=== PATIENT | male | born 1940 | race African-American/Black ===

== ENCOUNTER 2017-11-02 12:58 | Inpatient (IN) | payer MEDICARE, OTHER ==
[2017-11-02] MEDS ORDERED: Dexamethasone 40 MG, Ondansetron 2MG/ML MDV 10 MG in Sodium Chloride 0.9% 50 ML IVPB SCH (14:15)
[2017-11-02] MEDS ORDERED: SODIUM CHLORIDE 0.9% IVPB SCH (14:30)
[2017-11-02] MEDS ORDERED: ADMIXTURE FEE SC SCH (14:30)
[2017-11-02] MEDS ORDERED: BORTEZOMIB SC SCH (14:30)
[2017-11-02] MEDS ORDERED: CYCLOPHOSPHAMIDE IVPB SCH (14:30)
[2017-11-02] MEDS ORDERED: valACYclovir 500 MG TAB PO SCH (14:30)
[2017-11-02 14:34] LABS: ALT (SGPT) 7 U/L (8-55); AST (SGOT) 16 U/L (5-34); Albumin 3.6 g/dL (3.4-4.8); Alkaline Phosphatase 39 U/L (40-150); Anion Gap 12 mmol/L (10-20); BUN (Urea Nitrogen) 17 mg/dL (8.4-25.7); Bilirubin, Total 0.3 mg/dL (0.2-1.2); Calc. Creatinine Clearance 24 mL/min (70-130); Carbon Dioxide 34 mmol/L (23-31); Chloride 98 mmol/L (98-107); Estimated GFR-MDRD 51; Globulin 8.3 g/dL (2.4-3.5); Glucose 100 mg/dL (83-110); LDH 156 U/L (125-220); Potassium 4.2 mmol/L (3.5-5.1); Protein, Total 11.9 g/dL (5.8-8.1); Sodium 140 mmol/L (136-145); Uric Acid 9.9 mg/dL (3.5-7.2)
[2017-11-02 14:40] LABS: Calcium 13.9 mg/dL (7.8-10.44)
[2017-11-02 14:43] LABS: Eosinophils 6 % (0-10); Hemoglobin 8.9 g/dL (14.0-18.0); Lymphocytes 41 % (21-51); MDiff Complete? YES; Mean Corpuscular HGB CONC 32.2 g/dL (32.0-36.0); Mean Corpuscular Hemoglobin 34.4 pg (27.0-31.0); Mean Platelet Volume 7.7 fL (7.4-10.4); Monocytes 6 % (0-10); Neutrophil 46 % (42-75); PLT Morphology Comment Appears Adequate; Platelet Count 138 thou/uL (130-400); RBC Distribution Width 13.6 % (11.5-14.5); Reactive Lymphocytes 1 % (0-10); White Blood Cell (WBC) Count 8.2 thou/uL (4.8-10.8)
[2017-11-02 17:27] VITALS: BMI 15.0
[2017-11-02] MEDS: Sodium Chloride 0.9% 1,000 ML IV SCH (18:06)
--- NOTE | 2017-11-02 19:14 | CON ---
DATE OF CONSULTATION: 11/02/2017 REASON FOR CONSULTATION: Multiple myeloma. HISTORY OF PRESENT ILLNESS: Mr. Nagel is a pleasant 77-year-old -[place]ese male who was diagn osed with IgG lambda multiple myeloma in 09/2017. The patient had an M-spike of 3.8 at diagnosis. H is first chemotherapy of CyBorD was today. Chemistry performed today showed calcium of 13.9. The pa roman had no neurological changes or new aches or pains. He is being admitted for treatment of his h ypercalcemia and continuation of his chemotherapy. PAST MEDICAL HISTORY: 1. Hypertension. 2. COPD. 3. History of lung cancer in 2006, status post right lower lobe lobectomy. 4. Bullous emphysema. 5. Chronic gout. PAST SURGICAL HISTORY: 1. Ileocecectomy for distal small bowel volvulus in 1993. 2. Right lower lobe lobectomy. 3. Prostatectomy. 4. Right orchiectomy and right inguinal hernia repair. 5. EGD. 6. Right hip replacement. ALLERGIES: No known drug allergies. HOME MEDICATIONS: 1. Albuterol inhaler p.r.n. 2. Amlodipine 5 mg daily. 3. Flonase daily. 4. ProAir p.r.n. 5. Symbicort b.i.d. 6. Valtrex 500 mg daily. 7. Zofran p.r.n. FAMILY HISTORY: No family history of blood disorder or malignancy. SOCIAL HISTORY: , has 5 children. He lives alone. He is a former smoker with a [id number] history, quit over 15 years ago. No alcohol or illicit drug use. REVIEW OF SYSTEMS: Constitutional: No fever, chills, night sweats, recent weight loss or gain. Eye s: No blurred or double vision. ENT: No pain, hoarseness, sore throat, or dysphagia. Cardiovascul ar: No chest pain, palpitations or syncope. Respiratory: No shortness of breath, dyspnea on exerti on. He does have a cough. Gastrointestinal: No nausea, vomiting, diarrhea, constipation or abdomin al pain. Genitourinary: No dysuria or hematuria. Musculoskeletal: No joint or back pain. Skin: No rash or pruritus. Hematologic: No bleeding, bruising or clotting. Neurologic: No weakness, hea dache, numbness, tingling or seizure activity. Psychiatric: No anxiety or depression. PHYSICAL EXAMINATION: VITAL SIGNS: Temperature is 97.4, pulse is 87, respiratory rate 16, BP is 135/66. GENERAL: Chronically ill-appearing male in no acute distress. HEENT: Normocephalic, atraumatic. Pupils are equal and reactive to light. NECK: Supple. CVS: Regular rate and rhythm. LUNGS: Clear. ABDOMEN: Soft, nontender, bowel sounds are positive. EXTREMITIES: No clubbing, cyanosis or edema. SKIN: No rash. HEMATOLOGIC: No petechia or purpura. NEUROLOGICAL: Nonfocal. PSYCHIATRIC: The patient is alert and oriented and answering appropriately. PERTINENT LABORATORY AND X-RAYS: Current WBCs are 8.2, hemoglobin 8.9, hematocrit 27.8, platelet cou nt is 138,000. He has got 46% neutrophils, 41% lymphocytes. Sodium is 140, potassium 4.2, chloride 98, CO2 of 34, BUN is 17, creatinine 1.59, uric acid is 9.9, calcium 13.9, bilirubin 0.3, AST 16, ALT 7, alkaline phosphatase is 39. LDH is 156, serum total protein is 11.9, albumin 3.6, globulin 8.4. His IgA is 5597. IMPRESSION: 1. Newly-diagnosed multiple myeloma. 2. Hypercalcemia. DISCUSSION: The patient will be admitted for treatment of his hypercalcemia. He will receive Zometa 3.5 mg IV. We will begin IV fluids at 75 mg per hour. He was in the outpatient treatment room rece iving his first cycle of Cytoxan, which we will continue in the inpatient setting. He is scheduled f or a skeletal survey. This will be done in the inpatient setting as well in the next day or two, we will follow his labs closely. Thank you for the consult.
[2017-11-03] MEDS: Sodium Chloride 0.9% 1,000 ML IV SCH ×2 (07:42→22:30)
[2017-11-03] MEDS ORDERED: traMADol HCl 50 MG TAB PO PRN (08:05)
[2017-11-03] MEDS ORDERED: Fluticasone Propionate Nasal Spray 16 gm Bottle NASAL PRN ×2 (08:05→08:15)
[2017-11-03] MEDS ORDERED: PROVENTIL INHALER 6.7 G (200 INHALATIONS) INH PRN (08:06)
[2017-11-03] MEDS ORDERED: BUDESONIDE FORMOTEROL INH SCH (09:00)
[2017-11-03] MEDS: Amlodipine 5 MG TAB PO SCH (09:29)
--- NOTE | 2017-11-03 09:45 | HP ---
DATE OF CONSULTATION: 11/02/2017. CHIEF COMPLAINT: Elevated calcium level. HISTORY OF PRESENT ILLNESS: This is a 77-year-old gentleman with a history of COPD, history of non-s mall cell carcinoma of his right lung, status post right lobectomy, history of hypertension with a re cent diagnosis of multiple myeloma in 09/2017. He is being admitted for elevated calcium level. He was being seen by Oncology to initiate his chemotherapy when he was found to have a calcium level of 13.9 and he is being admitted for IV fluid, Zometa infusion and close monitoring. The patient denies any pain, denies bone pain, denies chest pain or shortness of breath, denies nausea and vomiting and so far, he is tolerating the treatments. PAST MEDICAL HISTORY: Non-small cell carcinoma of his right lung from 2008, status post right lobect jessica, hypertension, COPD with bullous emphysema, chronic gout, seasonal allergies, increased weakness. MEDICATIONS: Include Flonase daily, ProAir p.r.n., albuterol nebs p.r.n., Symbicort 160/4.5 two puff s b.i.d., tramadol p.r.n. pain, amlodipine 5 mg daily. PAST SURGICAL HISTORY: Ileocecectomy of distal small bowel in 1993, right lower lobectomy in 2008, p rostatectomy, right orchiectomy and right inguinal hernia repair, EGD in 2007. ALLERGIES: None known. SOCIAL HISTORY: He is . Lives at home. Has 3 children, 2 boys and 1 girl. Remote smoker. No alcohol use. FAMILY HISTORY: Father of unknown. Recent mother . IMMUNIZATIONS: Up to date. Last tetanus in 2016. Prevnar in 2014. Pneumovax in 2017. Flu shot in 2017. REVIEW OF SYSTEMS: As per the history of present illness. General: Denies any recent fevers, chill s or recent illness. HEENT: Some hardness of hearing. Positive for allergy with nasal congestion. Cardiac: Denies chest pain, shortness of breath or palpitations. Pulmonary: Positive for chronic cough, denies shortness of breath at this time. No hemoptysis. Gastrointestinal: No nausea, vomiti ng, abdominal pain, melena or hematochezia. Genitourinary: Positive history of benign prostatic hyp ertrophy. No symptoms at this time. Musculoskeletal: Positive weakness, some falls at home. Upper and lower extremity weakness. Neurologic: Positive weakness. No seizures or syncope. PHYSICAL EXAMINATION: VITAL SIGNS: Temperature 97.8, pulse is 66, respirations 20, blood pressure 120/56, pulse ox is 96% on room air. GENERAL: He is awake and alert, in no acute distress. Speech is clear. NECK: Supple. HEART: Regular rate and rhythm, but distant. LUNGS: Clear. No wheeze, rales or rhonchi. ABDOMEN: Flat, soft, nontender, nondistended. No hepatosplenomegaly. EXTREMITIES: No clubbing, cyanosis or edema, 2+ peripheral pulses bilaterally. LABORATORY DATA AND X-RAY FINDINGS: Sodium 140, potassium 4.2, chloride 98, CO2 of 34, BUN and creat inine are 17 and 1.59 with a GFR of 51. Serum glucose of 100. Uric acid elevated at 9.9. Calcium e levated at 13.9. AST and ALT are normal. Alkaline phosphatase was low, albumin of 3.6. White blood cell count 8200, hemoglobin and hematocrit are 8.9 and 27.8 with macrocytic indices, platelets of 13 8. IgA was elevated at 5597. ASSESSMENT AND PLAN: This is a 77-year-old gentleman with a history of non-small cell carcinoma, sta tus post lobectomy and recent diagnosis of multiple myeloma, now found to be hypercalcemic. Apprecia te Oncology managing with IV fluids and Zometa treatment. We will continue to monitor closely. Furt her labs per Oncology. 1. Hypertension. We will continue amlodipine and follow closely. 2. Chronic obstructive pulmonary disease. We will continue his inhalers including Symbicort and bet a-agonist p.r.n. 3. Anemia, macrocytic. I will continue to monitor and manage per Oncology recommendations. 4. Stage III chronic kidney disease. We will monitor closely and adjust medications appropriately.
[2017-11-03 11:10] LABS: ALT (SGPT) 9 U/L (8-55); AST (SGOT) 22 U/L (5-34); Albumin 3.1 g/dL (3.4-4.8); Alkaline Phosphatase 35 U/L (40-150); Anion Gap 16 mmol/L (10-20); BUN (Urea Nitrogen) 19 mg/dL (8.4-25.7); Bilirubin, Total 0.5 mg/dL (0.2-1.2); Calc. Creatinine Clearance 26 mL/min (70-130); Calcium 11.2 mg/dL (7.8-10.44); Carbon Dioxide 24 mmol/L (23-31); Chloride 102 mmol/L (98-107); Estimated GFR-MDRD 58; Globulin 7.3 g/dL (2.4-3.5); Glucose 139 mg/dL (83-110); Potassium 4.4 mmol/L (3.5-5.1); Protein, Total 10.4 g/dL (5.8-8.1); Sodium 138 mmol/L (136-145)
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
[2017-11-03] MEDS: Mometasone/Formoterol 120 PUFF INHALER INH SCH (17:55)
[2017-11-04 06:18] LABS: Beta-2-Microglobulin 4.2 mg/L (0.6-2.4)
[2017-11-04] MEDS: Mometasone/Formoterol 120 PUFF INHALER INH SCH (07:26)
[2017-11-04 07:54] VITALS: BP 118/56; TEMP 98.2
[2017-11-04] MEDS: Amlodipine 5 MG TAB PO SCH (07:54)
[2017-11-04 08:12] LABS: ALT (SGPT) Less than 7 U/L (8-55); AST (SGOT) 14 U/L (5-34); Albumin 2.8 g/dL (3.4-4.8); Alkaline Phosphatase 32 U/L (40-150); Anion Gap 13 mmol/L (10-20); BUN (Urea Nitrogen) 17 mg/dL (8.4-25.7); Bilirubin, Total 0.6 mg/dL (0.2-1.2); Calc. Creatinine Clearance 31 mL/min (70-130); Calcium 9.4 mg/dL (7.8-10.44); Carbon Dioxide 24 mmol/L (23-31); Chloride 106 mmol/L (98-107); Estimated GFR-MDRD 70; Globulin 6.1 g/dL (2.4-3.5); Glucose 91 mg/dL (83-110); Potassium 3.4 mmol/L (3.5-5.1); Protein, Total 8.9 g/dL (5.8-8.1); Sodium 140 mmol/L (136-145)
[2017-11-04 08:21] LABS: A/G Ratio 0.5 (0.7-1.7); Albumin 3.9 g/dL (2.9-4.4); Alpha 1 0.3 g/dL (0.0-0.4); Alpha 2 0.7 g/dL (0.4-1.0); Beta 1.3 g/dL (0.7-1.3); Globulin, Total 7.3 g/dL (2.2-3.9); M-Spike 4.5 g/dL (Not Observed)
--- NOTE | 2017-11-04 08:39 | DIS ---
DATE OF ADMISSION: 11/02/2017 DATE OF DISCHARGE: 11/04/2017 ADMISSION DIAGNOSIS: 1. Hypercalcemia. 2. Multiple myeloma initiating chemotherapy. 3. Hypertension. 4. Chronic obstructive pulmonary disease. 5. Chronic anemia. 6. Chronic kidney disease. DISCHARGE DIAGNOSES: 1. Hypercalcemia, resolved. 2. History of non-small cell carcinoma of his right lung, status post right lobectomy. CONSULTATIONS: Dr. Sebastian for Oncology. PROCEDURES: IV fluids, IV Zometa infusion chemotherapy. HOSPITAL COURSE: This is a 77-year-old gentleman with medical issues as described above who was rece ntly diagnosed with multiple myeloma. He came to Oncology for initiation of his chemotherapy and was found to have a calcium level of 13.9. He was admitted for IV fluids and Zometa as per Dr. Sebastian and his calcium level began to decline. The patient remained symptomatic throughout his hospitaliza tion. His mentation was clear. He denied any pain, denied chest pain, shortness of breath, nausea o r vomiting and he was stable for discharge pending his final labs. DISCHARGE PHYSICAL EXAMINATION: VITAL SIGNS: Temperature 98.2, pulse is 79, respirations 20, blood pressure 118/56, pulse ox is 96% on room air. GENERAL: He is awake and alert. Speech is clear. NECK: Supple. HEART: Regular rate and rhythm. LUNGS: Distant but clear. ABDOMEN: Soft. EXTREMITIES: With no edema. DISCHARGE LABS: 11/03/2017 - Sodium 138, potassium 4.4, chloride 102, CO2 24, BUN and creatinine 119 and 1.42, calcium was down to 11.2, albumin of 3.1. This morning labs are pending. A bone osseous survey was normal. DISCHARGE MEDICATIONS: Albuterol p.r.n., amlodipine 5 mg daily, Flonase daily, Symbicort 2 puffs b.i .d., tramadol p.r.n. pain. FOLLOWUP INSTRUCTIONS: The patient to follow up in my office in [address] Sebastian as per his chemo regimen.
--- NOTE | 2017-11-04 10:53 | PQF ---
CLINICAL DOCUMENTATION IMPROVEMENT CLARIFICATION FORM: ICD-10 Updated PLEASE DO AN ADDENDUM TO THE PROGRESS NOTE WITH ANY DOCUMENTATION UPDATES OR ADDITIONS AND CARRY THROUGH TO DC SUMMARY. THANK YOU. DATE: 11/04/17 ATTN: Dr. Sparks Please exercise your independent, professional judgment in responding to the clarification form. Clinical indicators are provided on the bottom of this form for your review Please check appropriate box(s): BMI <19 with associated diagnosis of: (check one) [ ] Underweight without malnutrition [ x] Cachexia [ ] Other diagnosis [ ] Unable to determine In addition, please specify: Present on Admission (POA): [x ] Yes [ ] No [ ] Unable to Determine For continuity of documentation, please document condition throughout progress notes and discharge summary. Thank You. BMI < 19.0 Under weight 19.0 - 24.9 Healthy 25.0 - 29.9 Slightly Overweight 30.0 - 34.9 Obese 35.0 - 39.9 Severely Obese 40.0 and Over Morbidly Obese CLINICAL INDICATORS - SIGNS / SYMPTOMS / LABS SALVAGE CUTTER ASSESSMENT 11/03: TRIGGERED FOR BMI 15.0 NUTRITION DX: UNDERWEIGHT RISKS: H&P: 77 YR OLD W/ HX OF NON-SMALL CELL CARCINOMA, S/P LOBECTOMY & RECENT DIAGNOSIS OF MULTIPLE MYELOMA. HYPERTENSION. COPD. ANEMIA, MACROCYTIC, STAGE 3 CKD. TREATMENT: SALVAGE CUTTER ASSESSMENT 11/03: TRIGGERED FOR BMI 15.0 RECOMMEND ENSURE ENLIVE BID TO AID WITH WEIGHT GAIN. Thank you, Aggie (This form is maintained as a part of the permanent medical record) 2014 [employer]. All Rights Reserved Aggie Bailon RN, BSN [email or web address] Office: [phone] [facility]
[2017-11-04 11:53] LABS: #Basophils 0.1 thou/uL (0.0-0.2); #Eosinphils 0.1 thou/uL (0.0-0.7); #Lymphocytes 3.3 thou/uL (1.20-3.40); #Monocytes 0.4 thou/uL (0.11-0.59); #Neutrophils 3.1 thou/uL (1.40-6.50); %Basophils 1.1 % (0.0-1.0); %Eosinophils 1.6 % (0.0-10.0); %Lymphocytes 47.6 % (21.0-51.0); %Neutrophils 44.8 % (42.0-75.0); Hemoglobin 8.6 g/dL (14.0-18.0); Mean Corpuscular HGB CONC 33.5 g/dL (32.0-36.0); Mean Corpuscular Hemoglobin 35.5 pg (27.0-31.0); Mean Platelet Volume 9.1 fL (7.4-10.4); Platelet Count 105 thou/uL (130-400); RBC Distribution Width 13.7 % (11.5-14.5); Red Blood Cell (RBC) Count 2.41 mill/uL (4.70-6.10)
== END 2017-11-04 13:35 | disposition home or self-care (01) | DRG 641 ==
LOC: ONC/OP 12:58 → ONC 15:38
PROVIDERS: ADMIT Family Medicine; ATTEND Family Medicine
DX: E83.52 Hypercalcemia (principal); C90.00 Multiple myeloma not having achieved remission; R64 Cachexia; D64.9 Anemia, unspecified; Z68.1 Body mass index [BMI] 19.9 or less, adult; J44.9 Chronic obstructive pulmonary disease, unspecified; I12.9 Hypertensive chronic kidney disease with stage 1 through stage 4 chronic kidney disease, or unspecified chronic kidney disease; N18.3 Chronic kidney disease, stage 3 (moderate); M10.9 Gout, unspecified; Z87.891 Personal history of nicotine dependence
CPT/HCPCS: 36415; 77075; 80053; 82232; 83615; 84165; 84550; 85025; 94664; 96367; 96401; 96413; 99212; G0463; J1100; J2405; J3489; J7050; J9041; J9070

== ENCOUNTER 2017-11-09 13:51 | Day surgery (SDC) | payer MEDICARE, MEDICAID ==
[2017-11-09] MEDS ORDERED: PRE FILLED SC SCH (14:30)
[2017-11-09] MEDS ORDERED: Dexamethasone 40 MG, Ondansetron 2MG/ML MDV 10 MG in Sodium Chloride 0.9% 50 ML IVPB SCH (14:30)
[2017-11-09] MEDS ORDERED: SODIUM CHLORIDE 0.9% IVPB SCH (14:30)
[2017-11-09] MEDS ORDERED: BORTEZOMIB SC SCH (14:30)
[2017-11-09] MEDS ORDERED: CYCLOPHOSPHAMIDE IVPB SCH (14:30)
[2017-11-09] MEDS ORDERED: Sodium Chloride 0.9% 30 ML ONE (14:50)
[2017-11-09 15:08] LABS: ALT (SGPT) Less than 7 U/L (8-55); AST (SGOT) 18 U/L (5-34); Albumin 3.3 g/dL (3.4-4.8); Alkaline Phosphatase 46 U/L (40-150); Anion Gap 17 mmol/L (10-20); BUN (Urea Nitrogen) 10 mg/dL (8.4-25.7); Bilirubin, Total 0.4 mg/dL (0.2-1.2); Calc. Creatinine Clearance 0 mL/min (70-130); Calcium 7.8 mg/dL (7.8-10.44); Carbon Dioxide 21 mmol/L (23-31); Chloride 105 mmol/L (98-107); Estimated GFR-MDRD 71; Glucose 105 mg/dL (83-110); Potassium 3.8 mmol/L (3.5-5.1); Protein, Total 10.3 g/dL (5.8-8.1); Sodium 139 mmol/L (136-145)
[2017-11-09 15:48] VITALS: BP 123/60; TEMP 98.4
== END 2017-11-09 16:31 | disposition home or self-care (01) ==
LOC: ONC/OP 13:51
PROVIDERS: ATTEND Internal Medicine Medical Oncology
DX: Z51.11 Encounter for antineoplastic chemotherapy (principal); C90.00 Multiple myeloma not having achieved remission; C91.10 Chronic lymphocytic leukemia of B-cell type not having achieved remission; I10 Essential (primary) hypertension; J44.9 Chronic obstructive pulmonary disease, unspecified; M10.9 Gout, unspecified; Z79.51 Long term (current) use of inhaled steroids; Z79.899 Other long term (current) drug therapy; Z90.2 Acquired absence of lung [part of]; Z85.118 Personal history of other malignant neoplasm of bronchus and lung; Z87.891 Personal history of nicotine dependence
CPT/HCPCS: 80053; 96367; 96401; 96413; A4216; J1100; J2405; J7050; J9041; J9070

== ENCOUNTER 2017-11-16 14:13 | Day surgery (SDC) | payer MEDICARE, MEDICAID ==
[2017-11-16] MEDS ORDERED: BORTEZOMIB SC SCH (14:30)
[2017-11-16] MEDS ORDERED: PRE FILLED SC SCH (14:30)
[2017-11-16] MEDS ORDERED: Dexamethasone 40 MG, Ondansetron 2MG/ML MDV 10 MG in Sodium Chloride 0.9% 50 ML IVPB SCH (14:30)
[2017-11-16] MEDS ORDERED: SODIUM CHLORIDE 0.9% IVPB SCH (15:00)
[2017-11-16] MEDS ORDERED: CYCLOPHOSPHAMIDE IVPB SCH (15:00)
== END 2017-11-16 16:32 | disposition home or self-care (01) ==
LOC: ONC/OP 14:13
PROVIDERS: ATTEND Internal Medicine Medical Oncology
DX: Z51.11 Encounter for antineoplastic chemotherapy (principal); C90.00 Multiple myeloma not having achieved remission; C91.10 Chronic lymphocytic leukemia of B-cell type not having achieved remission; D47.2 Monoclonal gammopathy; I10 Essential (primary) hypertension; J44.9 Chronic obstructive pulmonary disease, unspecified; M1A.9XX0 Chronic gout, unspecified, without tophus (tophi); Z87.891 Personal history of nicotine dependence; Z85.118 Personal history of other malignant neoplasm of bronchus and lung; Z79.899 Other long term (current) drug therapy; Z79.52 Long term (current) use of systemic steroids
CPT/HCPCS: 96367; 96401; 96413; J1100; J2405; J7050; J9041; J9070

== ENCOUNTER 2017-11-23 10:25 | Day surgery (SDC) | payer MEDICARE, MEDICAID ==
[2017-11-23 10:41] VITALS: BP 116/62; TEMP 98.1
[2017-11-23] MEDS ORDERED: ADMIXTURE FEE IVP SCH (10:45)
[2017-11-23] MEDS ORDERED: BORTEZOMIB IVP SCH (10:45)
[2017-11-23] MEDS ORDERED: Dexamethasone 40 MG, Ondansetron 2MG/ML MDV 10 MG in Sodium Chloride 0.9% 50 ML IVPB SCH (10:45)
[2017-11-23] MEDS ORDERED: SODIUM CHLORIDE 0.9% IVPB SCH (11:00)
[2017-11-23] MEDS ORDERED: BORTEZOMIB SC SCH (11:00)
[2017-11-23] MEDS ORDERED: ADMIXTURE FEE SC SCH (11:00)
[2017-11-23] MEDS ORDERED: CYCLOPHOSPHAMIDE IVPB SCH (11:00)
[2017-11-24] MEDS ORDERED: valACYclovir 500 MG TAB PO SCH (09:00)
== END 2017-11-23 12:39 | disposition home or self-care (01) ==
LOC: ONC/OP 10:25
PROVIDERS: ATTEND Internal Medicine Hematology & Oncology
DX: Z51.11 Encounter for antineoplastic chemotherapy (principal); C90.00 Multiple myeloma not having achieved remission; C91.10 Chronic lymphocytic leukemia of B-cell type not having achieved remission; I10 Essential (primary) hypertension; M10.9 Gout, unspecified; J43.9 Emphysema, unspecified; Z79.51 Long term (current) use of inhaled steroids; Z79.899 Other long term (current) drug therapy; Z90.2 Acquired absence of lung [part of]; Z87.891 Personal history of nicotine dependence; Z85.118 Personal history of other malignant neoplasm of bronchus and lung
CPT/HCPCS: 96367; 96401; 96413; J1100; J2405; J7050; J9041; J9070

== ENCOUNTER → 2017-11-30 | Day surgery (SDC) | payer MEDICARE, MEDICAID ==
[~2017-11-30] MED LIST: ADMIXTURE FEE IVP SCH; ADMIXTURE FEE IVPB SCH; ADMIXTURE FEE SC SCH; BORTEZOMIB SC SCH; CYCLOPHOSPHAMIDE IVPB SCH; DEXAMETHASONE IVP SCH; ONDANSETRON IVP SCH; SODIUM CHLORIDE IVPB SCH; Sodium Chloride 0.9% 40 ML ONE; ZOLEDRONIC ACID IVPB SCH; Zoledronic Acid 4 MG in Sodium Chloride 0.9% 100 ML IVPB SCH; [UNRECOGNIZED DRUG - OTHER] IVP SCH
[2017-11-30 16:21] VITALS: BP 115/56; TEMP 98.2
== END ==
LOC: ONC/OP 13:50
PROVIDERS: ATTEND Internal Medicine Hematology & Oncology
DX: Z51.11 Encounter for antineoplastic chemotherapy (principal); C90.00 Multiple myeloma not having achieved remission; C91.10 Chronic lymphocytic leukemia of B-cell type not having achieved remission; I10 Essential (primary) hypertension; J44.9 Chronic obstructive pulmonary disease, unspecified; M1A.9XX0 Chronic gout, unspecified, without tophus (tophi); Z87.891 Personal history of nicotine dependence; Z79.899 Other long term (current) drug therapy; Z79.51 Long term (current) use of inhaled steroids
CPT/HCPCS: 36415; 82565; 96367; 96401; 96413; A4216; J1100; J1642; J2405; J3489; J7050; J9041; J9070

== ENCOUNTER 2017-12-05 10:26 | Outpatient (CLI) | payer MEDICARE, MEDICAID | END 2017-12-05 10:27 | disposition home or self-care (01) | LOC: EDSTATUS 11:00 | PROVIDERS: ATTEND Family Medicine | DX: R26.89 Other abnormalities of gait and mobility (principal) | CPT/HCPCS: 97139; G8978; G8979; G8980 ==

== ENCOUNTER 2017-12-07 14:10 | Day surgery (SDC) | payer MEDICARE, MEDICAID ==
[2017-12-07] MEDS ORDERED: ADMIXTURE FEE SC SCH (14:30)
[2017-12-07] MEDS ORDERED: DEXAMETHASONE IVPB SCH (14:30)
[2017-12-07] MEDS ORDERED: ADMIXTURE FEE IVPB SCH ×2 (14:30)
[2017-12-07] MEDS ORDERED: ONDANSETRON IVPB SCH (14:30)
[2017-12-07] MEDS ORDERED: Ondansetron HCl/PF 4 MG/2 ML Vial IVP SCH (14:30)
[2017-12-07] MEDS ORDERED: SODIUM CHLORIDE IVPB SCH (14:30)
[2017-12-07] MEDS ORDERED: [UNRECOGNIZED DRUG - OTHER] IVPB SCH (14:30)
[2017-12-07] MEDS ORDERED: BORTEZOMIB SC SCH (14:30)
[2017-12-07] MEDS ORDERED: CYCLOPHOSPHAMIDE IVPB SCH (14:30)
[2017-12-07 16:31] VITALS: BP 130/58
== END 2017-12-07 16:32 | disposition home or self-care (01) ==
LOC: ONC/OP 14:10
PROVIDERS: ATTEND Internal Medicine Hematology & Oncology
DX: Z51.11 Encounter for antineoplastic chemotherapy (principal); C90.00 Multiple myeloma not having achieved remission; C91.10 Chronic lymphocytic leukemia of B-cell type not having achieved remission; I10 Essential (primary) hypertension; J44.9 Chronic obstructive pulmonary disease, unspecified
CPT/HCPCS: 96401; 96413; A4216; J1100; J2405; J7050; J9041; J9070

== ENCOUNTER 2017-12-14 14:03 | Day surgery (SDC) | payer MEDICARE, MEDICAID ==
[2017-12-14] MEDS ORDERED: BORTEZOMIB SC SCH ×2 (14:15)
[2017-12-14] MEDS ORDERED: DEXAMETHASONE IVPB SCH (14:15)
[2017-12-14] MEDS ORDERED: [UNRECOGNIZED DRUG - OTHER] IVPB SCH (14:15)
[2017-12-14] MEDS ORDERED: ADMIXTURE FEE IVPB SCH ×2 (14:15→14:30)
[2017-12-14] MEDS ORDERED: ONDANSETRON IVPB SCH (14:15)
[2017-12-14] MEDS ORDERED: ADMIXTURE FEE SC SCH ×2 (14:15)
[2017-12-14] MEDS ORDERED: SODIUM CHLORIDE IVPB SCH (14:30)
[2017-12-14] MEDS ORDERED: CYCLOPHOSPHAMIDE IVPB SCH (14:30)
== END 2017-12-14 16:05 | disposition home or self-care (01) ==
LOC: ONC/OP 14:03
PROVIDERS: ATTEND Internal Medicine Medical Oncology
DX: Z51.11 Encounter for antineoplastic chemotherapy (principal); C90.00 Multiple myeloma not having achieved remission; C91.10 Chronic lymphocytic leukemia of B-cell type not having achieved remission; I10 Essential (primary) hypertension; M1A.9XX0 Chronic gout, unspecified, without tophus (tophi); J43.9 Emphysema, unspecified; Z85.118 Personal history of other malignant neoplasm of bronchus and lung; Z79.899 Other long term (current) drug therapy
CPT/HCPCS: 96375; 96401; 96413; J1100; J2405; J7050; J9041; J9070

== ENCOUNTER 2017-12-21 13:58 | Day surgery (SDC) | payer MEDICARE, MEDICAID ==
[2017-12-21] MEDS ORDERED: ADMIXTURE FEE SC SCH (14:15)
[2017-12-21] MEDS ORDERED: Dexamethasone 40 MG, Ondansetron 2MG/ML MDV 10 MG in Sodium Chloride 0.9% 50 ML IVPB SCH (14:15)
[2017-12-21] MEDS ORDERED: BORTEZOMIB SC SCH (14:15)
[2017-12-21] MEDS ORDERED: SODIUM CHLORIDE 0.9% IVPB SCH (14:15)
[2017-12-21] MEDS ORDERED: CYCLOPHOSPHAMIDE IVPB SCH (14:15)
[2017-12-21] MEDS ORDERED: Sodium Chloride 0.9% 40 ML ONE (14:23)
[2017-12-21 15:53] VITALS: BP 125/58; TEMP 98
== END 2017-12-21 16:15 | disposition home or self-care (01) ==
LOC: ONC/OP 13:58
PROVIDERS: ATTEND Internal Medicine Medical Oncology
DX: Z51.11 Encounter for antineoplastic chemotherapy (principal); C90.00 Multiple myeloma not having achieved remission; C91.10 Chronic lymphocytic leukemia of B-cell type not having achieved remission; I10 Essential (primary) hypertension; J43.9 Emphysema, unspecified; M1A.9XX0 Chronic gout, unspecified, without tophus (tophi); Z85.46 Personal history of malignant neoplasm of prostate; Z85.118 Personal history of other malignant neoplasm of bronchus and lung; Z79.899 Other long term (current) drug therapy; Z87.891 Personal history of nicotine dependence
CPT/HCPCS: 36415; 80053; 82248; 83615; 84100; 84165; 84550; 96367; 96401; 96413; A4216; J1100; J2405; J7050; J9041; J9070

== ENCOUNTER 2017-12-28 13:43 | Day surgery (SDC) | payer MEDICARE, MEDICAID ==
[2017-12-28] MEDS ORDERED: Ondansetron HCl/PF 10 MG in Sodium Chloride 0.9% 50 ML IVPB SCH (14:00)
[2017-12-28] MEDS ORDERED: Dexamethasone 40 MG in Sodium Chloride 0.9% 50 ML IVPB SCH (14:00)
[2017-12-28] MEDS ORDERED: SODIUM CHLORIDE 0.9% IVPB SCH (14:00)
[2017-12-28] MEDS ORDERED: CYCLOPHOSPHAMIDE IVPB SCH (14:00)
[2017-12-28] MEDS ORDERED: Sodium Chloride 0.9% 40 ML ONE (14:00)
[2017-12-28] MEDS ORDERED: PRE FILLED IVP SCH (14:00)
[2017-12-28] MEDS ORDERED: BORTEZOMIB IVP SCH (14:00)
[2017-12-28] MEDS ORDERED: Dexamethasone 40 MG, Ondansetron 2MG/ML MDV 10 MG in Sodium Chloride 0.9% 50 ML IVPB SCH (14:00)
[2017-12-28 14:02] VITALS: BP 117/51
[2017-12-28] MEDS ORDERED: BORTEZOMIB SC SCH (14:15)
[2017-12-28] MEDS ORDERED: PRE FILLED SC SCH (14:15)
[2017-12-29] MEDS ORDERED: valACYclovir 500 MG TAB PO SCH (09:00)
== END 2017-12-28 16:15 | disposition home or self-care (01) ==
LOC: ONC/OP 13:43
PROVIDERS: ATTEND Internal Medicine Hematology & Oncology
DX: Z51.11 Encounter for antineoplastic chemotherapy (principal); C90.00 Multiple myeloma not having achieved remission; C91.10 Chronic lymphocytic leukemia of B-cell type not having achieved remission; I10 Essential (primary) hypertension; J43.9 Emphysema, unspecified; M1A.9XX0 Chronic gout, unspecified, without tophus (tophi); Z85.46 Personal history of malignant neoplasm of prostate; Z87.891 Personal history of nicotine dependence
CPT/HCPCS: 96367; 96375; 96401; 96413; A4216; J1100; J2405; J3489; J7050; J9041; J9070

== ENCOUNTER 2018-01-04 13:56 | Day surgery (SDC) | payer MEDICARE, MEDICAID ==
[2018-01-04] MEDS ORDERED: Sodium Chloride 0.9% 40 ML ONE (14:42)
[2018-01-04] MEDS ORDERED: CYCLOPHOSPHAMIDE IVPB SCH (15:00)
[2018-01-04] MEDS ORDERED: SODIUM CHLORIDE 0.9% IVPB SCH (15:00)
[2018-01-04] MEDS ORDERED: ADMIXTURE FEE SC SCH (15:00)
[2018-01-04] MEDS ORDERED: BORTEZOMIB SC SCH (15:00)
[2018-01-04] MEDS ORDERED: Dexamethasone 40 MG, Ondansetron 2MG/ML MDV 10 MG in Sodium Chloride 0.9% 50 ML IVPB SCH (15:00)
== END 2018-01-04 17:19 | disposition home or self-care (01) ==
LOC: ONC/OP 13:56
PROVIDERS: ATTEND Internal Medicine Hematology & Oncology
DX: Z51.11 Encounter for antineoplastic chemotherapy (principal); C90.00 Multiple myeloma not having achieved remission; C91.10 Chronic lymphocytic leukemia of B-cell type not having achieved remission; M1A.9XX0 Chronic gout, unspecified, without tophus (tophi); I10 Essential (primary) hypertension; J43.9 Emphysema, unspecified; Z85.118 Personal history of other malignant neoplasm of bronchus and lung; Z85.46 Personal history of malignant neoplasm of prostate; Z87.891 Personal history of nicotine dependence
CPT/HCPCS: 96401; 96413; A4216; J1100; J2405; J7050; J9041; J9070

== ENCOUNTER 2018-01-11 12:08 | Day surgery (SDC) | payer MEDICARE, MEDICAID ==
[2018-01-11] MEDS ORDERED: Dexamethasone 40 MG, Ondansetron 2MG/ML MDV 10 MG in Sodium Chloride 0.9% 50 ML IVPB SCH (12:15)
[2018-01-11] MEDS ORDERED: SODIUM CHLORIDE 0.9% IVPB SCH (12:30)
[2018-01-11] MEDS ORDERED: ADMIXTURE FEE SC SCH (12:30)
[2018-01-11] MEDS ORDERED: BORTEZOMIB SC SCH (12:30)
[2018-01-11] MEDS ORDERED: CYCLOPHOSPHAMIDE IVPB SCH (12:30)
== END 2018-01-11 14:12 | disposition home or self-care (01) ==
LOC: ONC/OP 12:08
PROVIDERS: ATTEND Internal Medicine Hematology & Oncology
DX: Z51.11 Encounter for antineoplastic chemotherapy (principal); C90.00 Multiple myeloma not having achieved remission; C91.10 Chronic lymphocytic leukemia of B-cell type not having achieved remission; I10 Essential (primary) hypertension; J44.9 Chronic obstructive pulmonary disease, unspecified; Z87.891 Personal history of nicotine dependence; Z79.899 Other long term (current) drug therapy
CPT/HCPCS: 96372; 96401; 96413; J1100; J2405; J7050; J9041; J9070

== ENCOUNTER 2018-01-18 12:13 | Day surgery (SDC) | payer MEDICARE, MEDICAID ==
[2018-01-18] MEDS ORDERED: Dexamethasone 40 MG, Ondansetron 2MG/ML MDV 10 MG in Sodium Chloride 0.9% 50 ML IVPB SCH (12:30)
[2018-01-18] MEDS ORDERED: BORTEZOMIB SC SCH (12:45)
[2018-01-18] MEDS ORDERED: CYCLOPHOSPHAMIDE IVPB SCH (12:45)
[2018-01-18] MEDS ORDERED: ADMIXTURE FEE SC SCH (12:45)
[2018-01-18] MEDS ORDERED: SODIUM CHLORIDE 0.9% IVPB SCH (12:45)
[2018-01-18 14:02] VITALS: BP 122/57; TEMP 98.1
== END 2018-01-18 15:07 | disposition home or self-care (01) ==
LOC: ONC/OP 12:13
PROVIDERS: ATTEND Internal Medicine Hematology & Oncology
DX: Z51.11 Encounter for antineoplastic chemotherapy (principal); C90.00 Multiple myeloma not having achieved remission; C91.10 Chronic lymphocytic leukemia of B-cell type not having achieved remission; I10 Essential (primary) hypertension; J43.9 Emphysema, unspecified; M1A.9XX0 Chronic gout, unspecified, without tophus (tophi); Z85.46 Personal history of malignant neoplasm of prostate; Z87.891 Personal history of nicotine dependence; Z79.899 Other long term (current) drug therapy
CPT/HCPCS: 36415; 80053; 82248; 83615; 84100; 84165; 84550; 96367; 96401; 96413; J1100; J2405; J7050; J9041; J9070

== ENCOUNTER 2018-01-26 10:42 | Day surgery (SDC) | payer MEDICARE, MEDICAID ==
[2018-01-26 10:51] VITALS: BP 125/63; TEMP 98.2
[2018-01-26] MEDS ORDERED: ADMIXTURE FEE SC SCH (11:15)
[2018-01-26] MEDS ORDERED: SODIUM CHLORIDE 0.9% IVPB SCH (11:15)
[2018-01-26] MEDS ORDERED: CYCLOPHOSPHAMIDE IVPB SCH (11:15)
[2018-01-26] MEDS ORDERED: BORTEZOMIB SC SCH (11:15)
[2018-01-26] MEDS ORDERED: Dexamethasone 40 MG, Ondansetron 2MG/ML MDV 10 MG in Sodium Chloride 0.9% 50 ML IVPB SCH (11:15)
[2018-01-27] MEDS ORDERED: valACYclovir 500 MG TAB PO SCH (09:00)
== END 2018-01-26 14:55 | disposition home or self-care (01) ==
LOC: ONC/OP 10:42
PROVIDERS: ATTEND Internal Medicine Hematology & Oncology
DX: Z51.11 Encounter for antineoplastic chemotherapy (principal); C90.00 Multiple myeloma not having achieved remission; C91.10 Chronic lymphocytic leukemia of B-cell type not having achieved remission; I10 Essential (primary) hypertension; J43.9 Emphysema, unspecified; M1A.9XX0 Chronic gout, unspecified, without tophus (tophi); Z85.46 Personal history of malignant neoplasm of prostate; Z87.891 Personal history of nicotine dependence
CPT/HCPCS: 36415; 82565; 96367; 96401; 96413; J1100; J2405; J3489; J7050; J9041; J9070

== ENCOUNTER 2018-02-01 14:00 | Day surgery (SDC) | payer MEDICARE, MEDICAID ==
[2018-02-01] MEDS ORDERED: BORTEZOMIB SC SCH (14:30)
[2018-02-01] MEDS ORDERED: Dexamethasone 40 MG, Ondansetron 2MG/ML MDV 10 MG in Sodium Chloride 0.9% 50 ML IVPB SCH (14:30)
[2018-02-01] MEDS ORDERED: CYCLOPHOSPHAMIDE IVPB SCH (14:30)
[2018-02-01] MEDS ORDERED: SODIUM CHLORIDE 0.9% IVPB SCH (14:30)
[2018-02-01] MEDS ORDERED: ADMIXTURE FEE SC SCH (14:30)
[2018-02-01] MEDS ORDERED: Sodium Chloride 0.9% 20 ML ONE (14:49)
[2018-02-01 14:58] VITALS: BP 133/65; TEMP 97.9
== END 2018-02-01 16:20 | disposition home or self-care (01) ==
LOC: ONC/OP 14:00
PROVIDERS: ATTEND Internal Medicine Hematology & Oncology
DX: Z51.11 Encounter for antineoplastic chemotherapy (principal); C90.00 Multiple myeloma not having achieved remission; C91.10 Chronic lymphocytic leukemia of B-cell type not having achieved remission; I10 Essential (primary) hypertension; J44.9 Chronic obstructive pulmonary disease, unspecified; Z79.899 Other long term (current) drug therapy
CPT/HCPCS: 96401; 96413; A4216; J1100; J2405; J7050; J9041; J9070

== ENCOUNTER 2018-02-08 11:28 | Day surgery (SDC) | payer MEDICARE, MEDICAID ==
[2018-02-08] MEDS ORDERED: Dexamethasone 40 MG in Sodium Chloride 0.9% 50 ML IVPB SCH ×2 (11:30→11:45)
[2018-02-08] MEDS ORDERED: CYCLOPHOSPHAMIDE IVPB SCH ×2 (11:30→11:45)
[2018-02-08] MEDS ORDERED: Ondansetron HCl/PF 4 MG/2 ML Vial SLOW IVP SCH (11:30)
[2018-02-08] MEDS ORDERED: SODIUM CHLORIDE 0.9% IVPB SCH ×2 (11:30→11:45)
[2018-02-08] MEDS ORDERED: PRE FILLED IVP SCH (11:30)
[2018-02-08] MEDS ORDERED: BORTEZOMIB IVP SCH (11:30)
[2018-02-08] MEDS ORDERED: Dexamethasone 40 MG, Ondansetron 2MG/ML MDV 10 MG in Sodium Chloride 0.9% 50 ML IVPB SCH (11:45)
[2018-02-08] MEDS ORDERED: Sodium Chloride 0.9% 30 ML ONE (11:58)
[2018-02-08 12:09] VITALS: BP 114/60; TEMP 97.7
[2018-02-08] MEDS ORDERED: PRE FILLED SC SCH (12:30)
[2018-02-08] MEDS ORDERED: BORTEZOMIB SC SCH (12:30)
[2018-02-09] MEDS ORDERED: valACYclovir 500 MG TAB PO SCH (09:00)
== END 2018-02-08 13:25 | disposition home or self-care (01) ==
LOC: ONC/OP 11:28
PROVIDERS: ATTEND Internal Medicine Hematology & Oncology
DX: Z51.11 Encounter for antineoplastic chemotherapy (principal); C90.00 Multiple myeloma not having achieved remission; C91.10 Chronic lymphocytic leukemia of B-cell type not having achieved remission; I10 Essential (primary) hypertension; J43.9 Emphysema, unspecified; Z87.891 Personal history of nicotine dependence; Z79.899 Other long term (current) drug therapy
CPT/HCPCS: 96366; 96401; 96413; A4216; J1100; J2405; J7050; J9041; J9070

== ENCOUNTER → 2018-02-15 | Day surgery (SDC) | payer MEDICARE, MEDICAID ==
[~2018-02-15] MED LIST changes: -ADMIXTURE FEE IVP SCH; -ADMIXTURE FEE IVPB SCH; -DEXAMETHASONE IVP SCH; +Dexamethasone 40 MG, Ondansetron 2MG/ML MDV 10 MG in Sodium Chloride 0.9% 50 ML IVPB SCH; -ONDANSETRON IVP SCH; +SODIUM CHLORIDE 0.9% IVPB SCH; -SODIUM CHLORIDE IVPB SCH; -Sodium Chloride 0.9% 40 ML ONE; -ZOLEDRONIC ACID IVPB SCH; -Zoledronic Acid 4 MG in Sodium Chloride 0.9% 100 ML IVPB SCH; -[UNRECOGNIZED DRUG - OTHER] IVP SCH
[2018-02-15 17:51] VITALS: BP 103/56; TEMP 97.9
== END ==
LOC: ONC/OP 13:32
PROVIDERS: ATTEND Internal Medicine Hematology & Oncology
DX: Z51.11 Encounter for antineoplastic chemotherapy (principal); C90.00 Multiple myeloma not having achieved remission; C91.10 Chronic lymphocytic leukemia of B-cell type not having achieved remission; I10 Essential (primary) hypertension; J43.9 Emphysema, unspecified; M1A.9XX0 Chronic gout, unspecified, without tophus (tophi); Z85.118 Personal history of other malignant neoplasm of bronchus and lung; Z87.891 Personal history of nicotine dependence
CPT/HCPCS: 36415; 80053; 82248; 83615; 84100; 84165; 84550; 96366; 96401; 96413; J1100; J2405; J7050; J9041; J9070

== ENCOUNTER 2018-02-22 13:38 | Day surgery (SDC) | payer MEDICARE, MEDICAID ==
[2018-02-22 13:50] VITALS: BP 100/58; TEMP 98.1
[2018-02-22] MEDS ORDERED: Dexamethasone 40 MG, Ondansetron 2MG/ML MDV 10 MG in Sodium Chloride 0.9% 50 ML IVPB SCH (14:15)
[2018-02-22] MEDS ORDERED: BORTEZOMIB SC SCH (14:45)
[2018-02-22] MEDS ORDERED: SODIUM CHLORIDE 0.9% IVPB SCH (14:45)
[2018-02-22] MEDS ORDERED: CYCLOPHOSPHAMIDE IVPB SCH (14:45)
[2018-02-22] MEDS ORDERED: ADMIXTURE FEE SC SCH (14:45)
== END 2018-02-22 15:39 | disposition home or self-care (01) ==
LOC: ONC/OP 13:38
PROVIDERS: ATTEND Internal Medicine Hematology & Oncology
DX: Z51.11 Encounter for antineoplastic chemotherapy (principal); C90.00 Multiple myeloma not having achieved remission; C91.10 Chronic lymphocytic leukemia of B-cell type not having achieved remission; I10 Essential (primary) hypertension; M1A.9XX0 Chronic gout, unspecified, without tophus (tophi); J43.9 Emphysema, unspecified; Z79.899 Other long term (current) drug therapy; Z85.46 Personal history of malignant neoplasm of prostate
CPT/HCPCS: 96367; 96375; 96401; 96413; J1100; J2405; J3489; J7050; J9041; J9070

== ENCOUNTER 2018-03-01 14:11 | Day surgery (SDC) | payer MEDICARE, MEDICAID ==
[2018-03-01] MEDS ORDERED: CYCLOPHOSPHAMIDE IVPB SCH (14:30)
[2018-03-01] MEDS ORDERED: ADMIXTURE FEE SC SCH (14:30)
[2018-03-01] MEDS ORDERED: SODIUM CHLORIDE 0.9% IVPB SCH ×2 (14:30)
[2018-03-01] MEDS ORDERED: BORTEZOMIB SC SCH (14:30)
[2018-03-01] MEDS ORDERED: DEXAMETHASONE IVPB SCH (14:30)
[2018-03-01] MEDS ORDERED: ONDANSETRON IVPB SCH (14:30)
[2018-03-01] MEDS ORDERED: valACYclovir 500 MG TAB PO SCH (14:30)
[2018-03-01 15:22] VITALS: BP 112/56; TEMP 98.7
== END 2018-03-01 16:29 | disposition home or self-care (01) ==
LOC: ONC/OP 14:11
PROVIDERS: ATTEND Internal Medicine Hematology & Oncology
DX: Z51.11 Encounter for antineoplastic chemotherapy (principal); C90.00 Multiple myeloma not having achieved remission; C91.10 Chronic lymphocytic leukemia of B-cell type not having achieved remission; I10 Essential (primary) hypertension; J43.9 Emphysema, unspecified; M1A.9XX0 Chronic gout, unspecified, without tophus (tophi); Z79.899 Other long term (current) drug therapy; Z87.891 Personal history of nicotine dependence
CPT/HCPCS: 96367; 96401; 96413; J1100; J2405; J7050; J9041; J9070

== ENCOUNTER 2018-05-17 13:41 | Day surgery (SDC) | payer MEDICARE, MEDICAID ==
[2018-05-17 14:27] VITALS: BP 112/69; TEMP 98.7
== END 2018-05-17 16:19 | disposition home or self-care (01) ==
LOC: ONC/OP 13:41
PROVIDERS: ATTEND Internal Medicine Hematology & Oncology
DX: Z51.11 Encounter for antineoplastic chemotherapy (principal); C90.00 Multiple myeloma not having achieved remission; C91.10 Chronic lymphocytic leukemia of B-cell type not having achieved remission
CPT/HCPCS: 96365; J3489; J7050